=== PATIENT | male | born 1985 | race Caucasian/White ===

== ENCOUNTER 2018-05-22 14:26 | Emergency (ER) | payer SELFPAY ==
[~2018-05-22] VITALS: Ht 180.3 cm; Wt 127.3 kg
[2018-05-22 14:26] VITALS: BP 135/81
[2018-05-22] MEDS ORDERED: ZYRT10CA PO (15:24)
[2018-05-22] MEDS ORDERED: FLON1SPR NARES (15:24)
[2018-05-22] MEDS ORDERED: NAPR-50 PO (15:24)
== END 2018-05-22 15:28 | disposition home or self-care (01) ==
LOC: M ED 14:26
DX: S83.8X1A Sprain of other specified parts of right knee, initial encounter (principal); W19.XXXA Unspecified fall, initial encounter; Y92.89 Other specified places as the place of occurrence of the external cause; H65.91 Unspecified nonsuppurative otitis media, right ear; J01.90 Acute sinusitis, unspecified; F17.210 Nicotine dependence, cigarettes, uncomplicated

== ENCOUNTER → 2019-06-17 | Outpatient (REF) | payer SELFPAY ==
[~2019-06-17] MED LIST: FLON1SPR NARES; NAPR-837 PO; ZYRT10CA PO
[2019-06-17 13:22] LABS: INFLUENZA A AMPLIFICATION NEGATIVE (NEGATIVE); INFLUENZA B AMPLIFICATION NEGATIVE (NEGATIVE)
== END ==
LOC: M LAB REF 12:14
PROVIDERS: ATTEND Physician Assistant
DX: J11.1 Influenza due to unidentified influenza virus with other respiratory manifestations (principal)

== ENCOUNTER → 2024-11-17 | Outpatient (CLI) | payer BC ==
[~2024-11-17] MED LIST changes: +PROHANCE 279.3MG/ML 15ML VIAL ONE; +PROHANCE 279.3MG/ML 5ML VIAL ONE
== END ==
LOC: M PLAIMG 07:46
PROVIDERS: ATTEND Physician Assistant
DX: R22.32 Localized swelling, mass and lump, left upper limb (principal)
CPT/HCPCS: 73220; A9576

== ENCOUNTER 2024-11-24 20:00 | Emergency (ER) | payer BC ==
[~2024-11-24] VITALS: Ht 180.3 cm; Wt 114.8 kg
[~2024-11-24 20:00] MED LIST changes: -PROHANCE 279.3MG/ML 15ML VIAL ONE; -PROHANCE 279.3MG/ML 5ML VIAL ONE
[2024-11-24 20:39] LABS: BASO # 0.1 10^3/uL (0.0-0.2); BASO % 0.5 % (0.0-1.0); EOS # 0.2 10^3/uL (0.0-0.5); EOS % 2.0 % (0.0-3.0); LYMPH # 2.4 10^3/uL (1.5-5.0); LYMPH % 20.4 % (24.0-44.0); MONO # 0.6 10^3/uL (0.0-0.8); MONO % 5.3 % (2.0-8.0); NEUTROPHILS # 8.3 10^3/uL (1.5-8.5); NEUTROPHILS % 70.7 % (36.0-66.0); PLATELET COUNT, AUTOMATED 309 10^3/uL (150-450)
[2024-11-24 21:08] LABS: CALCIUM LEVEL 9.1 MG/DL (8.5-10.1); CARBON DIOXIDE LEVEL 22.0 MMOL/L (20-31); CHLORIDE LEVEL 102.0 MMOL/L (98-107); CREATININE FOR GFR 1.1 MG/DL (0.70-1.30); GLOMERULAR FILTRATION RATE 87.0 (>60); POTASSIUM SERUM 4.5 MMOL/L (3.5-5.1); SODIUM LEVEL 141.0 MMOL/L (136-145)
[2024-11-25] MEDS: DALBAVANCIN 1,500 MG in D5W 250 ML IV ONE (03:35)
[2024-11-25 04:23] VITALS: BP 130/84; TEMP 98.7; O2SAT 94
== END 2024-11-25 04:24 | disposition home or self-care (01) ==
LOC: M ED 20:00
DX: L03.314 Cellulitis of groin (principal); L03.115 Cellulitis of right lower limb; Z79.899 Other long term (current) drug therapy
CPT/HCPCS: 80048; 85025; 96365; 99284; J0875

== ENCOUNTER 2025-01-07 09:06 | Day surgery (SDC) | payer BC ==
[~2025-01-07] VITALS: Ht 180.3 cm; Wt 147.0 kg
[~2025-01-07 09:06] MED LIST changes: +ceFAZolin SOD 2 GM IV ONCE IV ONE; +ceFAZolin SOD 3 GM in DEXTROSE 5% (D5W) MINI-BAG PLU 1... IV ONE
[2025-01-07] MEDS ORDERED: LIDOCAINE 2% 100 MG/5 ML SDV (FOR ANES.) As Ordered ONE (09:57)
[2025-01-07] MEDS ORDERED: MIDAZOLAM INJ 2 MG/2 ML VIAL As Ordered ONE (09:58)
[2025-01-07] MEDS ORDERED: LR 1,000 ML IV SCH (10:05)
[2025-01-07] MEDS ORDERED: ACETAMINOPHEN 1000MG/100ML IV BAG As Ordered ONE (10:16)
[2025-01-07] MEDS ORDERED: ONDANSETRON 4MG 2ML VIAL As Ordered ONE (10:27)
[2025-01-07] MEDS ORDERED: KETOROLAC 30 MG/ML 1 ML VIAL As Ordered ONE (11:00)
[2025-01-07 11:33] VITALS: BP 132/62; TEMP 97.6; O2SAT 96
== END 2025-01-07 11:42 | disposition home or self-care (01) ==
LOC: M SDC 09:06
PROVIDERS: ATTEND Orthopaedic Surgery Hand Surgery
DX: L72.0 Epidermal cyst (principal); G47.33 Obstructive sleep apnea (adult) (pediatric)
CPT/HCPCS: 26115; 87070; 87075; 88305; J0131; J0665; J0690; J1885; J2250; J2405; J3010